=== PATIENT | female | born 1975 | race Caucasian/White ===

== ENCOUNTER → 2017-03-20 | Day surgery (SDC) | payer BC ==
--- NOTE | 2017-03-18 13:48 | Diagnostic Imaging Report ---
PROCEDURE: Frontal and lateral views of the chest. COMPARISON: None. INDICATIONS: PRE OPERATIVE FOR FOOT SURGERY FINDINGS: Lines/tubes: None. Lungs: The lungs are well inflated and clear. There is no evidence of pneumonia or pulmonary edema. Pleura: There is no pleural effusion or pneumothorax. Heart and mediastinum: The heart and the mediastinum are normal. Bones: No acute bony abnormality. IMPRESSION: 1. No acute cardiopulmonary disease. Dictated by: Shahram Fortune M.D. on 03/18/2017 at 13:57 Electronically approved by: Shahram Fortune M.D. on 03/18/2017 at 13:57
[~2017-03-20] MED LIST: ACETAMINOPHEN 1000 MG/100 ML 100 ML IV ONE; BREO ELLIPTA INH; BUPIVACAINE HCL 0.5% INJ 30 ML VIAL INJ ONE; BUPIVACAINE LIPOSOME/PF 266 MG/20 ML IJ ONE; CEFAZOLIN SOD 2 GM/D5W 50ML 50 ML IV ONE; CEFDINIR300 MG PO; CIPRODEX OTIC7.5 ML; CYCLOBENZAPRINE10 MG PO; DEXAMETHASONE SOD PHOS INJ 4 MG/ML VIAL ONE; FENTANYL CITRATE/PF 100MCG/2 ML INJ ONE; FLOVENT DISKUS50 MCG; HYDROCODON-ACE1 EAC9 PO; LIDOCAINE HCL 2% LOCAL INJ 5 ML SDV VIAL INJ ONE; LORAZEPAM1 MG PO; MIDAZOLAM HCL 2 MG/2 ML VIAL ONE; NEOSTIGMINE 1 MG/ML 10ML VIAL ONE; ONDANSETRON HCL INJ 2 MG/ML VIAL ONE; PAXIL40 MG PO; PROAIR HFA INH8.5 GM INH; PROPOFOL IV EMULSION 10 MG/ML 20 ML VIAL ONE; SEVOFLURANE INHAL SOLN 250 ML PEN BTL ONE; TRAMADOL-ACETAMI1 EA PO
--- OUTSIDE RECORDS SUMMARY | 2017-03-20 05:31 | XMS REPORT ---
Author Author [facility] Address Unknown Phone Unavailable Care Team Providers Care Assistant Guest Services Manager Name Role Phone BHAVIN APPIAH Unavailable Unavailable Problems This patient has no known problems. Allergies, Adverse Reactions, Alerts This patient has no known allergies or adverse reactions. Medications This patient has no known medications. Results Test Description Test Time Test Comments Text Results Atomic Results Result Comments CHEST 2 VIEWS [place] [address] Patient Name: HUEY DOE MR #: [id number] : 1975 Age/Sex: 41/F Req #: [id number] Adm Physician: Ordered by: BHAVIN APPIAH DPM Report #: [id number] Location: OR Room/Bed: Procedure: [id number] DX/CHEST 2 VIEWS Exam Date: 03/18/17 Exam Time: 1320 REPORT STATUS: Signed PROCEDURE: Frontal and lateral views of the chest. COMPARISON: None. INDICATIONS: PRE OPERATIVE FOR FOOT SURGERY FINDINGS: Lines/tubes: None. Lungs: The lungs are well inflated and clear. There is no evidence of pneumonia or pulmonary edema. Pleura: There is no pleural effusion or pneumothorax. Heart and mediastinum: The heart and the mediastinum are normal. Bones: No acute bony abnormality. IMPRESSION: 1. No acute cardiopulmonary disease. Dictated by: Shahram Hodges M.D. on 03/18/2017 at 13:57 Electronically approved by: Shahram Hodges M.D. on 03/18/2017 at 13:57 Dictated By: SHAHRAM HODGES MD [id number] Transcribed By: MASON on 03/18/17 1358 COPY TO: BHAVIN APPIAH DPM
--- NOTE | 2017-03-20 11:52 | Operative Report ---
DATE OF PROCEDURE: March 20, 2017 PREOPERATIVE DIAGNOSES 1. Calcaneal varus, left foot. 2. Bone spur with accessory navicular, left foot. 3. Tendo Achillis contracture, left foot. POSTOPERATIVE DIAGNOSES 1. Calcaneal varus, left foot. 2. Bone spur with accessory navicular, left foot. 3. Tendo Achillis contracture, left foot. TITLE OF OPERATION 1. Exostectomy and excision of accessory navicular, left foot. 2. Lateral calcaneal slide osteotomy of the left foot. 3. Tendo Achillis lengthening, left foot. ANESTHESIA: General endotracheal. HEMOSTASIS: A left thigh tourniquet at 350 mmHg. PROCEDURE IN DETAIL: The patient was taken to the operating room in a mildly sedated state and placed upon the operating table in the supine position. Following induction of general anesthetic, the left lower extremity was elevated to 60 degrees to exsanguinate before inflating the pneumatic thigh tourniquet to 350 mmHg to create hemostasis. Left lower extremity was placed upon the operating table prior to performing the following procedure: Procedure #1: Excision of the accessory navicular and exostosis, medial navicular, left foot. A linear incision was made overlying the accessory navicular and prominent bone on the medial aspect of the navicular. This area was dissected down to the level of the prominence. Fluoro and radiographs were taken to ensure the location. The area was then resected with an oscillating saw and rotary bur, rasped smooth, irrigated with copious amounts of sterile saline solution. Deep closure was 3-0 Vicryl. Subcutaneous closure 4-0 Vicryl. Skin closure 4-0 nylon. Care was taken to identify and retract all vital structures encountered. The posterior tibial tendon at its insertion was left intact. Attention was then directed to the lateral aspect of the foot. A lateral transverse incision was placed along the lateral aspect of the calcaneus, which is in varus positioning. This incision was deepened via sharp and blunt dissection, with care being taken to identify and retract all vital structures encountered. The lateral fibular wall was identified, and a [place] and Hines elevator were used to remove periosteum from the intended surgical site as well as both dorsally and plantarly on the calcaneous itself. The uszyowz-vzh-[id number] osteotomy was made straight. An osteotome was used to finish the balance. Medially, the lateral aspect was shifted lateralward to create a slide osteotomy on the lateral aspect of the heel. The slide was then pinned into position with 2 K-wires, and two 6.5 Fernandez cancellous screws were inserted across the screw line to create excellent compression. This having been accomplished, the area was irrigated with copious amounts of sterile saline solution. The screws were noted to be seated well, and a more lateral positioning of the heel was noted as opposed to the previous calcaneal varus. The heel is now neutral. The wound was closed over the hardware with 3-0 Vicryl and 4-0 nylon. Attention was then directed to the posterior aspect of the heel with the foot being elevated and a linear dissection revealing the entirety of the length of the plantar fascia, which the apparent state has always been shortened and seems to have contributed to the problem. The transverse plane Z lengthening was performed, which allowed for significant lengthening of the Achilles tendon both proximally and distally. This having been accomplished, the tendon was repaired with #2 FiberWire. Irrigated with copious amounts of sterile saline solution. The periosteum was closed over a human tissue allograft sheet 4 x 8. The closure over that sheet was performed with a combination of 3-0 Vicryl and 4-0 nylon. Skin felice were used on the posterior skin as well. The release of the pneumatic thigh tourniquet showed a normal hyperemic flush to all digits. The patient tolerated both the anesthetic and the procedure very well. A posterior splint was applied. Patient is to remain nonweightbearing. She was blocked with a local 0.5 Marcaine and Decadron [place] as well as Exparel to facilitate long-lasting block. The release of the pneumatic thigh tourniquet showed a normal hyperemic flush to all digits to the left foot. The patient left the operating room with vital signs stable and in apparent satisfactory condition, having tolerated both the anesthetic and procedure very well. Job#: [id number]
== END | disposition home or self-care (01) ==
LOC: OR 05:29
PROVIDERS: ATTEND Podiatrist Foot Surgery
DX: M21.172 Varus deformity, not elsewhere classified, left ankle (principal); M77.52 Other enthesopathy of left foot and ankle; M67.02 Short Achilles tendon (acquired), left ankle; M19.072 Primary osteoarthritis, left ankle and foot; Q66.7 Congenital pes cavus; J45.909 Unspecified asthma, uncomplicated; F41.9 Anxiety disorder, unspecified; F32.9 Major depressive disorder, single episode, unspecified; Z01.810 Encounter for preprocedural cardiovascular examination; Z01.818 Encounter for other preprocedural examination
CPT/HCPCS: 27685; 28300; 28899; 71046; 76001; 81025; 93005; C9290; J1100; J2001; J2250; J2405; J2710

== ENCOUNTER 2018-11-18 11:18 | Emergency (ER) | payer BC ==
[~2018-11-18] VITALS: Ht 162.6 cm; Wt 96.6 kg
[~2018-11-18 11:18] MED LIST changes: -ACETAMINOPHEN 1000 MG/100 ML 100 ML IV ONE; -BUPIVACAINE HCL 0.5% INJ 30 ML VIAL INJ ONE; -BUPIVACAINE LIPOSOME/PF 266 MG/20 ML IJ ONE; -CEFAZOLIN SOD 2 GM/D5W 50ML 50 ML IV ONE; -DEXAMETHASONE SOD PHOS INJ 4 MG/ML VIAL ONE; -FENTANYL CITRATE/PF 100MCG/2 ML INJ ONE; -LIDOCAINE HCL 2% LOCAL INJ 5 ML SDV VIAL INJ ONE; -MIDAZOLAM HCL 2 MG/2 ML VIAL ONE; -NEOSTIGMINE 1 MG/ML 10ML VIAL ONE; -ONDANSETRON HCL INJ 2 MG/ML VIAL ONE; -PROPOFOL IV EMULSION 10 MG/ML 20 ML VIAL ONE; -SEVOFLURANE INHAL SOLN 250 ML PEN BTL ONE
[2018-11-18] MEDS ORDERED: DEXAMETHASONE SOD PHOS 10 MG/1 ML VIAL IM ONE (12:30)
[2018-11-18] MEDS ORDERED: HYDROCODONE/APAP 10MG-325MG TAB PO ONE (12:30)
[2018-11-18] MEDS ORDERED: KETOROLAC TROMETHAMINE 60 MG/2 ML VIAL IM ONE (12:30)
--- NOTE | 2018-11-18 12:30 | Diagnostic Imaging Report ---
Right ankle, 3 views. Right foot, 3 views. History: Right lower extremity pain. Findings: There is mild diffuse soft tissue swelling at the ankle. Bone mineralization is normal. There is no evidence of fracture or dislocation. There are no lytic or sclerotic lesions. The joint spaces are within normal limits. IMPRESSION: Mild ankle soft tissue swelling. No acute osseous abnormality. Signed by: Han Dodge on 11/18/2018 12:26 PM
--- NOTE | 2018-11-18 13:27 | NUR ---
pt did not want crutches. pt has scooter at home and wants to use that. md notified and ok with that. extra prisca wrap for home and fall socks
== END 2018-11-18 13:15 | disposition home or self-care (01) ==
LOC: ER 11:18
DX: M19.071 Primary osteoarthritis, right ankle and foot (principal); J45.909 Unspecified asthma, uncomplicated; F41.8 Other specified anxiety disorders
CPT/HCPCS: 73610; 73630; 99284; J1100; J1885

== ENCOUNTER → 2018-12-10 | Day surgery (SDC) | payer BC ==
[2018-11-30 14:06] LABS: BASOPHILS # (AUTO) 0.1 (0.0-0.1); BASOPHILS % 0.5 % (0.0-1.0); EOSINOPHILS # (AUTO) 0.6 (0.0-0.4); EOSINOPHILS % 5.7 % (0.0-6.0); HEMATOCRIT 38.3 % (34.2-44.1); HEMOGLOBIN 12.9 g/dL (12.0-16.0); LYMPHOCYTES # (AUTO) 2.3 (1.0-3.2); LYMPHOCYTES % 20.1 % (18.0-39.1); MEAN CORPUSCULAR HEMOGLOBIN 27.4 pg (28-32); MEAN CORPUSCULAR HGB CONC 33.7 g/dL (31-35); MEAN CORPUSCULAR VOLUME 81.3 fL (81-99); MONOCYTES # (AUTO) 0.7 (0.2-0.8); MONOCYTES % 6.4 % (4.4-11.3); NEUTROPHILS # (AUTO) 7.5 (2.1-6.9); NEUTROPHILS % 66.9 % (38.7-80.0); PLATELET COUNT 324 x10e3/uL (140-360); RED BLOOD COUNT 4.71 x10e6/uL (3.6-5.1); RED CELL DISTRIBUTION WIDTH 12.2 % (11.7-14.4)
--- NOTE | 2018-11-30 15:54 | Diagnostic Imaging Report ---
EXAMINATION: CHEST 2 VIEWS INDICATION: Pre-operative COMPARISON: None FINDINGS: LINES/TUBES:None LUNGS:The lungs are well-inflated. No focal consolidation or pulmonary edema. PLEURA:No pleural effusion or pneumothorax. MEDIASTINUM:The cardiomediastinal silhouette appears normal in size and shape. BONES/SOFT TISSUES:No acute osseous injury. ABDOMEN:No free air under the diaphragm. Status post cholecystectomy. IMPRESSION: No focal pneumonia or pulmonary edema. Signed by: Wilmer Wylie MD on 11/30/2018 3:51 PM
[~2018-12-10] MED LIST changes: +ACETAMINOPHEN 1000 MG/100 ML IV ONE; +BACTRIM 400-801 EACH PO; +BUPIVACAINE HCL 0.5% INJ 30 ML VIAL INJ ONE; +CLINDAMYCIN PHOS 900MG/ 50ML 50 ML IV ONE; +DEXAMETHASONE SOD PHOS INJ 4 MG/ML VIAL ONE; +ESMOLOL HCL 100MG/10ML 10 MG/ML VIAL ONE; +FENTANYL CITRATE/PF 100MCG/2 ML INJ ONE; +HYDROCODONE/APAP 10MG-325MG TAB ONE; +HYDROMORPHONE 1MG/1ML INJ ONE; +HYDROMORPHONE 2MG/ML 2 MG/ML ML ONE; +KETOROLAC TROMETHAMINE 30 MG/ML VIAL ONE; +LABETALOL HCL 5 MG/ML 20ML VIAL ONE; +LIDOCAINE HCL 2% LOCAL INJ 5 ML SDV VIAL INJ ONE; +MIDAZOLAM HCL 2 MG/2 ML VIAL ONE; +MORPHINE SULFATE INJ 10 MG/ML ONE; +NEOSTIGMINE 1 MG/ML 10ML VIAL ONE; +NORCO 10-325 T1 EACH PO; +ONDANSETRON HCL INJ 2MG/ML 2ML 2 MG/ML VIAL ONE; +PROPOFOL IV EMULSION 10 MG/ML 20 ML VIAL ONE; +SEVOFLURANE INHAL SOLN 250 ML PEN BTL ONE
[2018-12-10 12:20] VITALS: BP 136/74
--- NOTE | 2018-12-11 02:18 | Operative Report ---
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 TITLE OF THE OPERATION: 1. Gastrocnemius recession. 2. Triple arthrodesis to include subtalar joint, talonavicular joint, and the calcaneocuboid joint. 3. Fusion of the navicular-medial cuneiform joint, all on the right foot. NET WASHER: Irma Barrett DPM. PROCEDURE IN DETAIL: The patient was taken to the operating room in a mildly sedated stated and placed upon the operating table in supine position. Following induction of general anesthetic, the right lower extremity was elevated to 60 degrees to exsanguinate along with Esmarch bandaging prior to performing following procedure. The foot was placed on the operating table in a supine position with elevation to expose the posterior compartment. A transverse gastrocnemius soleus recession was performed. All deep tissues were transversely sectioned to allow for a dorsiflexion at the ankle up to neutral. It had been an approximately 20 degrees of plantar flexion. With the heel in neutral, the area was irrigated and closed with 3-0 Vicryl and 4-0 nylon. Attention was then directed to the lateral aspect of the foot, where dissection was performed of the lateral calcaneocuboid joint and subtalar joint through a lateral incision. The incision was deepened via sharp and blunt dissection down to the level of the capsular structure. Care was taken to identify and retract all vital structures encountered. Sural nerve was reflected from harm's way. The underlying tissues were evaluated and calcaneocuboid joint capsule was incised and the joint was debrided off all underlying cartilaginous structures. Curette, antony elevator, and osteotome were used to accomplish the removal of all cartilaginous surface. A 2.3 drill bit was used to fenestrate and fish-scale the bone. Attention was then directed to the subtalar joint and both the anterior and posterior and middle facets were all debrided of cartilaginous structure. A wedging of the calcaneus was performed with a pie-shaped wedge taken from the calcaneus wider laterally than medially in order to achieve a rectus to slightly valgus positioning of the heel. This all having been accomplished under fluoroscopy, the areas were irrigated with copious amounts of sterile saline solution. Attention was then directed to the medial aspect of the foot, where a 3rd incision was placed overlying the talonavicular joint. This was deepened via sharp and blunt dissection down to the level of the highest point of the deformity. There was a significant amount of necrotic bone and arthritic bone in that area, all of which was debrided away. The talonavicular articulation was also resected and wedged in an appropriate fashion in order to correct the plantar flexure nature of the 1st ray and to straighten the severe cavus clubfoot deformity. The navicular and medial cuneiform were also noted to be involved in the deformity and also had a significant amount of arthritic degeneration. Intraoperative decision to include this joint in the fusion was performed as it was necessary to achieve the appropriate level of correction and fusion. All cartilage was removed and once again the dorsiflexor wedge was performed in order to elevate the 1st ray relative to the forefoot. It once again has been irrigated and then all bones and joints were put through their maximum range of motion with regard to dorsiflexion and pronation. It was determined under fluoroscopy that adequate correction had been achieved. Therefore, attention was directed to the posterior facet of the subtalar joint. The heel was loaded, distracted laterally as far as possible and posteriorly as far as possible. Two K-wires were advanced across the subtalar joint and under fluoroscopy, a 7-0 screw with buried head was used to fuse the joint. That area was then irrigated with copious amounts of sterile saline solution and attention was directed to the calcaneocuboid joint, which was noted to still be in good alignment back to the medial aspect, where the talonavicular joint was dialed in and fused with two cross screws 4.0 in diameter and 30 mm, 50 mm, and 55 mm in length. Those screws with the additional use of BIO4 viable bone matrix was used to facilitate fusion. The screws were advanced through the navicular and into the talus creating an excellent bony apposition, all done under fluoroscopy. The intraoperative decision to include the medial cuneiform and navicular joint was performed as well and fixated. This having been accomplished with BIO4 as well, the area was irrigated and attention was directed back to the calcaneocuboid joint, where two bone felice were used to adequately compress and fixate the calcaneocuboid joint. These were osteosynthesis compression felice. BIO4 was used in that articulation as well. The remaining BIO4 was packed into the sinus tarsi at the 2-hour [place]. The tourniquet was released after packing of the wounds and the remainder of the procedure approximately an additional hour was performed after a period of adequate tissue perfusion with release of the tourniquet. This having been accomplished and deep closure being performed at this point with a combination of 3-0 Vicryl, 4-0 Vicryl, and then 4-0 nylon in the skin, the areas of surgery were all well coapted and closed including posterior heel, where the plan had been advanced. This having been accomplished and the appropriate compression having been accomplished, the areas were then blocked with a combination of 0.5 Marcaine and no Decadron was used. Approximately, 20 mL of block were used in strategic positions. The patient was then placed in a posterior splint with appropriate padding and release of the pneumatic thigh tourniquet. It showed a normal hyperemic flush to all digits of the foot and the patient left the operating room with vital signs stable in apparent satisfactory condition, having tolerated both anesthetic and procedure very well. ISABEL Garner/ANTOINE /[id number]
== END | disposition home or self-care (01) ==
LOC: OR 05:33
PROVIDERS: ATTEND Podiatrist Foot Surgery
DX: M19.071 Primary osteoarthritis, right ankle and foot (principal); M21.541 Acquired clubfoot, right foot; M24.574 Contracture, right foot; M21.271 Flexion deformity, right ankle and toes; M77.9 Enthesopathy, unspecified; J45.909 Unspecified asthma, uncomplicated; F32.9 Major depressive disorder, single episode, unspecified; F41.9 Anxiety disorder, unspecified; Z88.1 Allergy status to other antibiotic agents; Z88.0 Allergy status to penicillin; Z01.810 Encounter for preprocedural cardiovascular examination; Z01.812 Encounter for preprocedural laboratory examination; Z01.818 Encounter for other preprocedural examination
CPT/HCPCS: 27687; 28715; 28737; 36415; 71046; 81025; 85025; 93005; C1713 ×3; J0131; J1100; J1170 ×2; J1885; J2001; J2250; J2270; J2405; J2704; J2710; J3010; J3490; C1769

== ENCOUNTER 2018-12-12 03:49 | Emergency (ER) | payer BC ==
[~2018-12-12] VITALS: Ht 162.6 cm; Wt 96.6 kg
[~2018-12-12 03:49] MED LIST changes: -ACETAMINOPHEN 1000 MG/100 ML IV ONE; -BUPIVACAINE HCL 0.5% INJ 30 ML VIAL INJ ONE; -CLINDAMYCIN PHOS 900MG/ 50ML 50 ML IV ONE; -DEXAMETHASONE SOD PHOS INJ 4 MG/ML VIAL ONE; -ESMOLOL HCL 100MG/10ML 10 MG/ML VIAL ONE; -FENTANYL CITRATE/PF 100MCG/2 ML INJ ONE; -HYDROCODONE/APAP 10MG-325MG TAB ONE; -HYDROMORPHONE 1MG/1ML INJ ONE; -HYDROMORPHONE 2MG/ML 2 MG/ML ML ONE; -KETOROLAC TROMETHAMINE 30 MG/ML VIAL ONE; -LABETALOL HCL 5 MG/ML 20ML VIAL ONE; -LIDOCAINE HCL 2% LOCAL INJ 5 ML SDV VIAL INJ ONE; -MIDAZOLAM HCL 2 MG/2 ML VIAL ONE; -MORPHINE SULFATE INJ 10 MG/ML ONE; -NEOSTIGMINE 1 MG/ML 10ML VIAL ONE; -ONDANSETRON HCL INJ 2MG/ML 2ML 2 MG/ML VIAL ONE; -PROPOFOL IV EMULSION 10 MG/ML 20 ML VIAL ONE; -SEVOFLURANE INHAL SOLN 250 ML PEN BTL ONE
[2018-12-12] MEDS ORDERED: ONDANSETRON HCL INJ 2MG/ML 2ML 2 MG/ML VIAL IV STA (04:08)
[2018-12-12] MEDS ORDERED: MORPHINE SULFATE INJ 4 MG/ML INJ 1ML IV PRN ×2 (04:15)
[2018-12-12] MEDS ORDERED: MORPHINE SULFATE 2 MG/ML SYR 1ML ONE (04:20)
[2018-12-12 04:24] LABS: BASOPHILS % 0.2 % (0.0-1.0); EOSINOPHILS # (AUTO) 0.1 (0.0-0.4); HEMATOCRIT 32.9 % (34.2-44.1); HEMOGLOBIN 10.6 g/dL (12.0-16.0); MEAN CORPUSCULAR HEMOGLOBIN 27.2 pg (28-32); MEAN CORPUSCULAR HGB CONC 32.2 g/dL (31-35); MEAN CORPUSCULAR VOLUME 84.6 fL (81-99); MONOCYTES % 7.9 % (4.4-11.3); NEUTROPHILS # (AUTO) 8.3 (2.1-6.9); NEUTROPHILS % 66.3 % (38.7-80.0); PLATELET COUNT 326 x10e3/uL (140-360); RED BLOOD COUNT 3.89 x10e6/uL (3.6-5.1); RED CELL DISTRIBUTION WIDTH 12.8 % (11.7-14.4)
--- NOTE | 2018-12-12 04:40 | NUR ---
HS CALLED FOR DOPPLER TO RLE PER MD ORDERS
[2018-12-12 04:46] LABS: ALANINE AMINOTRANSFERASE 35 IU/L (0-55); ALBUMIN 3.1 g/dL (3.5-5.0); ALBUMIN/GLOBULIN RATIO 0.9 (0.8-2.0); ALKALINE PHOSPHATASE 57 IU/L (40-150); ANION GAP 16.1 mmol/L (8-16); BLOOD UREA NITROGEN 9 mg/dL (7-26); BUN/CREATININE RATIO 12 (6-25); CALCIUM 8.7 mg/dL (8.4-10.2); CARBON DIOXIDE 21 mmol/L (22-29); CHLORIDE 103 mmol/L (98-107); CREATININE, SERUM 0.77 mg/dL (0.57-1.11); EST GLOMERULAR FILTRATION RATE > 60 ML/MIN (60-); GLUCOSE 107 mg/dL (74-118); POTASSIUM 4.1 mmol/L (3.5-5.1); SODIUM 136 mmol/L (136-145)
--- NOTE | 2018-12-12 05:25 | NUR ---
DR. ROWELL'S OFFICE PAGED TO INFORM OF NEED TO REMOVE SURGICAL DRESSING TO PERFORM DOPPLER TO R/O DVT
--- NOTE | 2018-12-12 05:42 | NUR ---
spoke to dr webster. covering for dr palomo. informed that pt presented to er for uncontrollable pain to r foot. informed of need to remove dressing/splint for doppler study. states that ok to remove dressing and splint. also gave orders regarding application of dressing and orders p doppler study.
--- NOTE | 2018-12-12 05:51 | Diagnostic Imaging Report ---
X-ray right foot 3 views X-ray tib-fib 2 views HISTORY: Pain. COMPARISON: Ankle radiograph 7 11/18/2018 FINDINGS: Overlying cast/limits bony detail. Percutaneous soft tissue drain within the lateral ankle. Bones: Medial cuneiform-navicular screw fixation. 2 screw fixation of navicular to talus. Calcaneotalar screw fixation. Evidence of recent calcaneal osteotomy Multiple tarsal osteotomies. Joints: The joint spaces are well-maintained. Mild improvement in pes cavus. Soft tissues: Soft tissue swelling of the foot and ankle. IMPRESSION: Overlying cast/splint limits bony detail. Recent tarsal osteotomies and multiple new tarsal arthrodesis hardware compared to 11/18/2018 without evidence of acute hardware complication. Mild improvement in pes cavus. Nonspecific soft tissue swelling of the foot and ankle. Signed by: Alfonso Alfredo DO on 12/12/2018 5:47 AM
[2018-12-12 06:19] VITALS: BP 139/86
== END 2018-12-12 06:40 | disposition home or self-care (01) ==
LOC: ER 03:49
DX: M25.571 Pain in right ankle and joints of right foot (principal); Z98.890 Other specified postprocedural states; F41.9 Anxiety disorder, unspecified; J45.909 Unspecified asthma, uncomplicated; Z86.718 Personal history of other venous thrombosis and embolism
CPT/HCPCS: 36415; 73590; 73630; 80053; 85025; 93971; 96374; 96375; 99284; J2270 ×2; J2405

== ENCOUNTER → 2019-03-18 | Day surgery (SDC) | payer BC ==
[2019-03-16 09:50] LABS: BASOPHILS # (AUTO) 0.1 (0.0-0.1); BASOPHILS % 0.6 % (0.0-1.0); EOSINOPHILS # (AUTO) 0.3 (0.0-0.4); EOSINOPHILS % 3.4 % (0.0-6.0); HEMATOCRIT 35.3 % (34.2-44.1); LYMPHOCYTES # (AUTO) 2.1 (1.0-3.2); LYMPHOCYTES % 25.8 % (18.0-39.1); MEAN CORPUSCULAR HEMOGLOBIN 26.8 pg (28-32); MONOCYTES # (AUTO) 0.6 (0.2-0.8); MONOCYTES % 7.4 % (4.4-11.3); NEUTROPHILS % 62.4 % (38.7-80.0); PLATELET COUNT 397 x10e3/uL (140-360); RED BLOOD COUNT 4.47 x10e6/uL (3.6-5.1); RED CELL DISTRIBUTION WIDTH 12.3 % (11.7-14.4)
[~2019-03-18] MED LIST changes: +ACETAMINOPHEN 1000 MG/100 ML IV ONE; +BUPIVACAINE HCL 0.5% INJ 30 ML VIAL INJ ONE; +CLINDAMYCIN PHOS 900MG/ 50ML 50 ML IV ONE; +DEXAMETHASONE SOD PHOS INJ 4 MG/ML VIAL ONE; +GLYCOPYRROLATE INJ 0.2 MG/ML VIAL ONE; +HYDROMORPHONE 2MG/ML 2 MG/ML ML ONE; +KETOROLAC TROMETHAMINE 30 MG/ML VIAL ONE; +LEXAPRO10 MG PO; +LIDOCAINE HCL 2% LOCAL INJ 5 ML SDV VIAL INJ ONE; +NEOSTIGMINE 1 MG/ML 10ML VIAL ONE; +ONDANSETRON HCL INJ 2MG/ML 2ML 2 MG/ML VIAL ONE; +PROPOFOL IV EMULSION 10 MG/ML 20 ML VIAL ONE; +ROCURONIUM BROMIDE 10 MG/ML 5ML VIAL ONE; +SEVOFLURANE INHAL SOLN 250 ML PEN BTL ONE; +SUCCINYLCHOLINE CHLORIDE 20 MG/ML 10ML VIAL ONE
[2019-03-18 11:40] VITALS: BP 141/83
--- NOTE | 2019-03-18 22:52 | Operative Report ---
DATE OF PROCEDURE: 03/18/2019 SURGEON: Hernan Mcgee DPM ROOM NUMBER: [facility]. PREOPERATIVE DIAGNOSES: Plantar flexed 1st metatarsal, 2nd metatarsal, 3rd metatarsal, 4th metatarsal, and 5th metatarsal, all of the right foot and rigidly contracted hammertoes, hallux, 2nd, 3rd, 4th, and 5th digits, all on the right foot. POSTOPERATIVE DIAGNOSES: Plantar flexed 1st metatarsal, 2nd metatarsal, 3rd metatarsal, 4th metatarsal, and 5th metatarsal, all of the right foot and rigidly contracted hammertoes, hallux, 2nd, 3rd, 4th, and 5th digits, all on the right foot. PROCEDURES PERFORMED: 1. Elevating osteotomy of the 1st metatarsal of the right foot. 2. Jacobo osteotomy, 2nd, 3rd, 4th, and 5th metatarsals, right foot. 3. Arthrodesis, hallux, 2nd, 3rd, 4th, and 5th digits, all on the right foot. ANESTHESIA: General endotracheal. HEMOSTASIS: Right thigh tourniquet at 350 mmHg. PROCEDURE IN DETAIL: The patient was taken to the operating room in a mildly sedated state and placed on the operating table in supine position. Following induction of general anesthetic, the right lower extremity was elevated to 60 degrees to exsanguinate before inflating the pneumatic thigh tourniquet to 350 mmHg to create hemostasis. Right lower extremity was placed on the operating table prior to performing the following procedure. Procedure #1: Elevating osteotomy of the 1st metatarsal of the right foot. An approximate 6 cm dorsal linear incision was made overlying the 1st metatarsal head of the right foot. Incision was deepened via sharp and blunt dissection down to the level of the dorsal capsular structure. Care was taken to identify and retract all vital structures encountered. Head of the 1st metatarsal delivered in the surgical site and all periosteum was stripped away from the dorsum of the 1st metatarsal. This allowed for penetration to bone. The bone itself having been similarly penetrated, was noted to be rigidly contracted with an inability of her hallux to plantar flex accordingly. A through and through V osteotomy was placed dorsal to plantar, which allowed for an elevation of the metatarsal head on the more proximal segment, which was then impacted and stabilized with two 0.062 K-wires. The area was irrigated and closed with 3-0 Vicryl and 4-0 nylon. Attention was then directed to the 2nd, 3rd, 4th, and 5th metatarsals on the right foot. Jacobo osteotomies for shortening and angular correction were performed; 2, 3, 4, and 5 metatarsals of right foot all through separate incisions and with separate cannulated screws. This having been accomplished, the area was irrigated with copious amounts of sterile saline solution, deep closure, capsule tendon balancing procedures 3-0 Vicryl and 4-0 nylon. Attention was then directed to the digits, where arthrodesis was performed creating a minimal shortening, but a significant plantar flexions of the digits at the proximal phalangeal joint level through each of the joint levels. A 0.045 K-wire was used to apply the appropriate positioning, which was then pinned in a retrograde technique starting from proximal fashion all the way out distal and then entering the metatarsal proximally. Each of the digits was noted to maintain normal alignment for the first time in many years. The appropriate mildly compressive dressings were applied. After applying the operative dressings, the areas were blocked with 0.5 Marcaine, Decadron [place]. A human tissue allograft was injected to facilitate appropriate healing. The patient was placed in a posterior splint. All activities will be limited. Return to see me within 1 week postoperatively. ISABEL Garner/ANTOINE /[id number]
== END | disposition home or self-care (01) ==
LOC: OR 05:25
PROVIDERS: ATTEND Podiatrist Foot Surgery
DX: M19.271 Secondary osteoarthritis, right ankle and foot (principal); M20.41 Other hammer toe(s) (acquired), right foot; M79.671 Pain in right foot; Z01.812 Encounter for preprocedural laboratory examination; Z88.1 Allergy status to other antibiotic agents; Z88.8 Allergy status to other drugs, medicaments and biological substances; K58.9 Irritable bowel syndrome, unspecified; Z86.718 Personal history of other venous thrombosis and embolism; J45.909 Unspecified asthma, uncomplicated; M21.271 Flexion deformity, right ankle and toes
CPT/HCPCS: 28285 ×4; 28306; 28308 ×4; 36415; 81025; 85025; C1713 ×5; J0131; J0330; J1100; J1170; J1885; J2001; J2405; J2704; J2710; L8699; Q4100 ×2

== ENCOUNTER 2020-02-15 10:04 | Emergency (ER) | payer BC ==
[~2020-02-15] VITALS: Ht 162.6 cm; Wt 96.6 kg
[~2020-02-15 10:04] MED LIST changes: -ACETAMINOPHEN 1000 MG/100 ML IV ONE; -BUPIVACAINE HCL 0.5% INJ 30 ML VIAL INJ ONE; -CLINDAMYCIN PHOS 900MG/ 50ML 50 ML IV ONE; -DEXAMETHASONE SOD PHOS INJ 4 MG/ML VIAL ONE; -GLYCOPYRROLATE INJ 0.2 MG/ML VIAL ONE; -HYDROMORPHONE 2MG/ML 2 MG/ML ML ONE; -KETOROLAC TROMETHAMINE 30 MG/ML VIAL ONE; -LIDOCAINE HCL 2% LOCAL INJ 5 ML SDV VIAL INJ ONE; -NEOSTIGMINE 1 MG/ML 10ML VIAL ONE; -ONDANSETRON HCL INJ 2MG/ML 2ML 2 MG/ML VIAL ONE; -PROPOFOL IV EMULSION 10 MG/ML 20 ML VIAL ONE; -ROCURONIUM BROMIDE 10 MG/ML 5ML VIAL ONE; -SEVOFLURANE INHAL SOLN 250 ML PEN BTL ONE; -SUCCINYLCHOLINE CHLORIDE 20 MG/ML 10ML VIAL ONE
[2020-02-15] MEDS ORDERED: ZOFRAN4 MG SL (11:04)
[2020-02-15] MEDS ORDERED: GUAIFEN-CODEINE10 ML PO (11:04)
== END 2020-02-15 11:19 | disposition home or self-care (01) ==
LOC: ER 10:25
DX: U07.1 COVID-19 (principal); J45.909 Unspecified asthma, uncomplicated; F41.9 Anxiety disorder, unspecified; F32.9 Major depressive disorder, single episode, unspecified; Z88.1 Allergy status to other antibiotic agents; Z88.0 Allergy status to penicillin; Z88.8 Allergy status to other drugs, medicaments and biological substances; Z86.711 Personal history of pulmonary embolism; Z86.718 Personal history of other venous thrombosis and embolism
CPT/HCPCS: 99283